=== PATIENT | female | born 1995 ===

== ENCOUNTER 2017-08-09 08:24 | Emergency (ER) | payer OTHER ==
[2017-08-09 08:24] VITALS: BMI 38.7
[2017-08-09 08:29] VITALS: BP 118/67; TEMP 98
[2017-08-09 08:40] VITALS: RESP 18
--- NOTE | 2017-08-09 09:03 | ED PDOC ---
History of Present Illness History of Present Illness: 22 year old female presents to the emergency department complaining of fevers, chills, body aches and headaches x2 days. Patient states that her daughter was recently diagnosed with the flu. She further reports that she has a red pimple under her left breast x days. Denies drainage. pMD: Suzi Mello HPI: Influenza Time Seen by Provider: 08/09/17 08:41 Chief Complaint: Flu-like Symptoms Chief Complaint (Provider): Fevers, Chills, Body Aches and Headache History Per: Patient Exam Limitations: no limitations Have you had recent travel within the past 21 days to any of: No Onset/Duration Of Symptoms: Days (x2) Symptoms include: fever, headache, bodyaches Sick Contacts (Context): Family Member(s) (daughter) Past Medical History Reviewed: Historical Data, Nursing Documentation, Vital Signs Vital Signs: Last Vital Signs Temp 98 F 08/09/17 08:34 Pulse 103 H 08/09/17 08:34 Resp 18 08/09/17 08:34 BP 118/67 08/09/17 08:34 Pulse Ox 98 08/09/17 08:34 - Medical History PMH: No Chronic Diseases - Surgical History Surgical History: Appendectomy - Family History Family History: States: Unknown Family Hx - Home Medications Home Medications: Ambulatory Orders Medication Instructions Recorded Famotidine [Pepcid] 20 mg PO DAILY PRN #6 tab 10/23/15 Cyclobenzaprine [Cyclobenzaprine 10 mg PO TID #10 tab 04/30/16 HCl] Naproxen [Naprosyn] 500 mg PO Q12H #20 tab 04/30/16 Oseltamivir [Tamiflu] 75 mg PO BID #10 cap 08/09/17 Sulfamethoxazole/Trimethoprim 1 tab PO BID #20 tab 08/09/17 [Bactrim DS 800 mg-160 mg] - Allergies Allergies/Adverse Reactions: Allergies Allergy/AdvReac Type Severity Reaction Status Date / Time No Known Allergies Allergy Verified 08/09/17 08:34 Review of Systems Constitutional: Positive for: Fever, Chills, Other (body aches) Neurological: Positive for: Headache Physical Exam - Reviewed Nursing Documentation Reviewed: Yes Vital Signs Reviewed: Yes - Physical Exam Appears: Positive for: Non-toxic, No Acute Distress Head Exam: Positive for: ATRAUMATIC, NORMAL INSPECTION, NORMOCEPHALIC Skin: Positive for: Normal Color, Warm, Dry. Negative for: Rash Eye Exam: Positive for: Normal appearance, EOMI, PERRL. Negative for: Nystagmus ENT: Positive for: Normal ENT Inspection, Pharynx Is (clear). Negative for: Nasal Congestion, Pharyngeal Erythema, Tonsillar Exudate, Tonsillar Swelling Neck: Positive for: Normal, Painless ROM, Supple Cardiovascular/Chest: Positive for: Regular Rate, Rhythm, Chest Non Tender. Negative for: Murmur, Tachycardia Respiratory: Positive for: Normal Breath Sounds, Other (left breast inferior portion erythematous lesion; no fluctuance; no mass; no drainage from nipple; no drainage; no masses palpable; No axillary adenopathy.). Negative for: Rales , Rhonchi, Wheezing, Respiratory Distress Gastrointestinal/Abdominal: Positive for: Normal Exam, Bowel Sounds, Soft. Negative for: Tenderness, Guarding, Rebound Back: Positive for: Normal Inspection. Negative for: L CVA Tenderness, R CVA Tenderness Extremity: Positive for: Normal ROM. Negative for: Tenderness, Deformity, Swelling Neurologic/Psych: Positive for: Alert, Oriented, Gait Medical Decision Making Medical Decision Makin Initial Impression 22 year old female presenting with headaches, fever, chills, body aches Initial Plan: * Reevaluation Documented by Josey Hinton acting as a scribe for Jason Vanessa MD. All medical record entries made by the Scribe were at my direction and personally dictated by me. I have reviewed the chart and agree that the record accurately reflects my personal performance of the history, physical exam, medical decision making, and the department course for this patient. I have also personally directed, reviewed, and agree with the discharge instructions and disposition. - ECG O2 Sat by Pulse Oximetry: 98 Disposition - Clinical Impression Clinical Impression: Influenza, Furuncle of breast - Patient ED Disposition Is Patient to be Admitted: No Counseled Patient/Family Regarding: Diagnosis, Need For Followup, Rx Given - Disposition Referrals: [facility] [Outside] Disposition: Routine/Home Disposition Time: 09:35 Condition: FAIR Additional Instructions: Follow up with PMD for breast eval possible mammo or ultrasound Prescriptions: Oseltamivir [Tamiflu] 75 mg PO BID #10 cap Sulfamethoxazole/Trimethoprim [Bactrim DS 800 mg-160 mg] 1 tab PO BID #20 tab Instructions: Flu, Adult (DC), Boil (DC) Forms: [facility] (Wolof)
[2017-08-09 09:32] VITALS: PULSE 89
[2017-08-09 11:11] VITALS: O2SAT 98
== END 2017-08-09 09:23 | disposition home or self-care (01) ==
LOC: H.ER 08:24
DX: J11.1 Influenza due to unidentified influenza virus with other respiratory manifestations (principal); N61.1 Abscess of the breast and nipple